=== PATIENT | female | born 1985 | race Caucasian/White ===

== ENCOUNTER 2021-07-08 02:29 | Inpatient (IN) | payer OTHER ==
[2021-07-08] MEDS ORDERED: SODIUM CHLORIDE 0.9% 500 ML 500 ML IV STA (03:14)
[2021-07-08 03:43] LABS: Basophils # (A) 0.1 k/uL (0-0.2); Basophils % (A) 1 %; Eosinophils # (A) 0.2 k/uL (0-0.7); Eosinophils % (A) 3 %; HCT 40.8 % (34.0-46.0); HGB 13.6 gm/dL (11.4-16.0); Lymphocytes # (A) 2.5 k/uL (1.0-4.8); Lymphocytes % (A) 32 %; MCH 31.7 pg (25.0-35.0); MCHC 33.3 g/dL (31.0-37.0); MCV 95.2 fL (80.0-100.0); Mean Platelet Volume 9.6; Monocytes # (A) 0.4 k/uL (0-1.0); Monocytes % (A) 4 %; Neutrophils # (A) 4.7 k/uL (1.3-7.7); Neutrophils % (A) 59 %; Platelet Count 202 k/uL (150-450); RBC 4.28 m/uL (3.80-5.40); RDW 12.6 % (11.5-15.5); WBC 7.9 k/uL (3.8-10.6)
[2021-07-08 04:00] LABS: ALT 16 U/L (4-34); AST 25 U/L (14-36); Acetaminophen <10.0 ug/mL; African American GFR (CKD) >90 (>60 ml/min/1.73 sqM); Albumin 3.8 g/dL (3.5-5.0); Alkaline Phosphatase 68 U/L (38-126); Anion Gap 9 mmol/L; Blood Urea Nitrogen 9 mg/dL (7-17); Calcium 8.6 mg/dL (8.4-10.2); Carbon Dioxide 21 mmol/L (22-30); Chloride 112 mmol/L (98-107); Glucose 70 mg/dL (74-99); Non-African American GFR(CKD) >90 (>60 ml/min/1.73 sqM); Potassium 3.7 mmol/L (3.5-5.1); Salicylate <1.0 mg/dL; Sodium 142 mmol/L (137-145); Total Bilirubin 0.5 mg/dL (0.2-1.3); Total Protein 6.7 g/dL (6.3-8.2)
[2021-07-08 04:16] LABS: Alcohol 149 mg/dL
--- NOTE | 2021-07-08 04:16 | ED ---
Overdose HPI - General Source: patient, EMS Mode of arrival: EMS Limitations: altered mental status - History of Present Illness MD Complaint: accidental overdose -: hour(s) Intent: want to go to sleep <Gonzalez Garza - Last Filed: 07/08/21 04:16> <Fredi Collins - Last Filed: 07/08/21 11:26> - General Chief Complaint: Psychiatric Symptoms Stated Complaint: Overdose Time Seen by Provider: 07/08/21 02:38 - History of Present Illness Initial Comments: This patient is 35-year-old woman who presents with concern that she may have accidentally overdosed. She had taken a number of Klonopin tonight after she had been drinking. She states she was trying to improve the way she was feeling. (Gonzalez Garza) Review of Systems ROS Other: All systems not noted in ROS Statement are negative. Limitations: ROS unobtainable due to patients medical condition <Gonzalez Garza - Last Filed: 07/08/21 04:16> ROS Other: All systems not noted in ROS Statement are negative. <Fredi Collins - Last Filed: 07/08/21 11:26> ROS Statement: Those systems with pertinent positive or pertinent negative responses have been documented in the HPI. Past Medical History Smoking Status: Current every day smoker <Gonzalez Garza - Last Filed: 07/08/21 04:16> General Exam General appearance: appears intoxicated, obtunded Head exam: Present: atraumatic, normocephalic Eye exam: Present: normal appearance, PERRL, nystagmus. Absent: scleral icterus, conjunctival injection Neck exam: Present: normal inspection, full ROM. Absent: tenderness, meningismus Respiratory exam: Present: normal lung sounds bilaterally. Absent: respiratory distress, wheezes, rales, rhonchi, stridor Cardiovascular Exam: Present: regular rate, normal rhythm, normal heart sounds. Absent: systolic murmur, diastolic murmur, rubs, gallop GI/Abdominal exam: Present: soft. Absent: distended, tenderness, guarding, rebound Extremities exam: Present: normal inspection, normal capillary refill. Absent: pedal edema, calf tenderness Back exam: Present: normal inspection. Absent: CVA tenderness (R), CVA tenderness (L) Neurological exam: Present: altered. Absent: motor sensory deficit Psychiatric exam: Absent: homicidal ideation, suicidal ideation Skin exam: Present: warm, dry, intact, normal color. Absent: rash <Gonzalez Garza - Last Filed: 07/08/21 04:16> Course Vital Signs 07/08/21 07/08/21 07/08/21 02:48 06:08 08:07 Temperature 98.6 F Pulse Rate 94 75 84 Respiratory 16 17 18 Rate Blood Pressure 149/96 99/45 O2 Sat by Pulse 94 L 95 94 L Oximetry 07/08/21 10:24 Temperature Pulse Rate 89 Respiratory 18 Rate Blood Pressure 104/66 O2 Sat by Pulse 99 Oximetry Medical Decision Making - Lab Data Result diagrams: 07/08/21 03:25 - EKG Data -: EKG Interpreted by Ms EKG shows normal: sinus rhythm, axis (Normal), intervals (Normal), QRS complexes (Normal), ST-T waves (Normal) Rate: normal (Rate 87 bpm) <Gonzalez Garza - Last Filed: 07/08/21 04:16> - Lab Data Result diagrams: 07/08/21 03:25 07/08/21 03:25 <Fredi Collins - Last Filed: 07/08/21 11:26> - Medical Decision Making I filled out a clinical certification have the patient admitted. (Fredi Collins) - Lab Data Lab Results 07/08/21 07/08/21 07/08/21 Range/Units 03:25 03:25 03:25 WBC 7.9 (3.8-10.6) k/uL RBC 4.28 (3.80-5.40) m/uL Hgb 13.6 (11.4-16.0) gm/dL Hct 40.8 (34.0-46.0) % MCV 95.2 (80.0-100.0) fL MCH 31.7 (25.0-35.0) pg MCHC 33.3 (31.0-37.0) g/dL RDW 12.6 (11.5-15.5) % Plt Count 202 (150-450) k/uL MPV 9.6 Neutrophils % 59 % Lymphocytes % 32 % Monocytes % 4 % Eosinophils % 3 % Basophils % 1 % Neutrophils # 4.7 (1.3-7.7) k/uL Lymphocytes # 2.5 (1.0-4.8) k/uL Monocytes # 0.4 (0-1.0) k/uL Eosinophils # 0.2 (0-0.7) k/uL Basophils # 0.1 (0-0.2) k/uL Sodium (137-145) mmol/L Potassium (3.5-5.1) mmol/L Chloride (98-107) mmol/L Carbon Dioxide (22-30) mmol/L Anion Gap mmol/L BUN (7-17) mg/dL Creatinine (0.52-1.04) mg/dL Est GFR (CKD-EPI)AfAm (>60 ml/min/1.73 sqM) Est GFR (CKD-EPI)NonAf (>60 ml/min/1.73 sqM) Glucose (74-99) mg/dL Calcium (8.4-10.2) mg/dL Total Bilirubin (0.2-1.3) mg/dL AST (14-36) U/L ALT (4-34) U/L Alkaline Phosphatase (38-126) U/L Total Protein (6.3-8.2) g/dL Albumin (3.5-5.0) g/dL Urine HCG, Qual Not Detected (Not Detectd) Salicylates mg/dL Urine Opiates Screen Not Detected (NotDetected) Ur Oxycodone Screen Not Detected (NotDetected) Urine Methadone Screen Not Detected (NotDetected) Ur Propoxyphene Screen Not Detected (NotDetected) Acetaminophen ug/mL Ur Barbiturates Screen Not Detected (NotDetected) U Tricyclic Antidepress Not Detected (NotDetected) Ur Phencyclidine Scrn Not Detected (NotDetected) Ur Amphetamines Screen Detected H (NotDetected) U Methamphetamines Scrn Not Detected (NotDetected) U Benzodiazepines Scrn Not Detected (NotDetected) Urine Cocaine Screen Not Detected (NotDetected) U Marijuana (THC) Screen Detected H (NotDetected) Serum Alcohol mg/dL Coronavirus (PCR) (Not Detectd) 07/08/21 07/08/21 Range/Units 03:25 10:22 WBC (3.8-10.6) k/uL RBC (3.80-5.40) m/uL Hgb (11.4-16.0) gm/dL Hct (34.0-46.0) % MCV (80.0-100.0) fL MCH (25.0-35.0) pg MCHC (31.0-37.0) g/dL RDW (11.5-15.5) % Plt Count (150-450) k/uL MPV Neutrophils % % Lymphocytes % % Monocytes % % Eosinophils % % Basophils % % Neutrophils # (1.3-7.7) k/uL Lymphocytes # (1.0-4.8) k/uL Monocytes # (0-1.0) k/uL Eosinophils # (0-0.7) k/uL Basophils # (0-0.2) k/uL Sodium 142 (137-145) mmol/L Potassium 3.7 (3.5-5.1) mmol/L Chloride 112 H (98-107) mmol/L Carbon Dioxide 21 L (22-30) mmol/L Anion Gap 9 mmol/L BUN 9 (7-17) mg/dL Creatinine 0.61 (0.52-1.04) mg/dL Est GFR (CKD-EPI)AfAm >90 (>60 ml/min/1.73 sqM) Est GFR (CKD-EPI)NonAf >90 (>60 ml/min/1.73 sqM) Glucose 70 L (74-99) mg/dL Calcium 8.6 (8.4-10.2) mg/dL Total Bilirubin 0.5 (0.2-1.3) mg/dL AST 25 (14-36) U/L ALT 16 (4-34) U/L Alkaline Phosphatase 68 (38-126) U/L Total Protein 6.7 (6.3-8.2) g/dL Albumin 3.8 (3.5-5.0) g/dL Urine HCG, Qual (Not Detectd) Salicylates <1.0 mg/dL Urine Opiates Screen (NotDetected) Ur Oxycodone Screen (NotDetected) Urine Methadone Screen (NotDetected) Ur Propoxyphene Screen (NotDetected) Acetaminophen <10.0 ug/mL Ur Barbiturates Screen (NotDetected) U Tricyclic Antidepress (NotDetected) Ur Phencyclidine Scrn (NotDetected) Ur Amphetamines Screen (NotDetected) U Methamphetamines Scrn (NotDetected) U Benzodiazepines Scrn (NotDetected) Urine Cocaine Screen (NotDetected) U Marijuana (THC) Screen (NotDetected) Serum Alcohol 149 mg/dL Coronavirus (PCR) Not Detected (Not Detectd) Disposition <Gonzalez Garza - Last Filed: 07/08/21 04:16> Time of Disposition: 11:26 <Fredi Collins - Last Filed: 07/08/21 11:26> Clinical Impression: Suicidal ideation, Depression, Overdose, Alcohol intoxication Disposition: ADMITTED IP TO THIS HOSP Referrals: None,Stated [Primary Care Provider] - 1-2 days
[2021-07-08 10:53] LABS: Amphetamine Screen,Urine Detected (NotDetected); Barbiturate Screen,Urine Not Detected (NotDetected); Benzodiazepines Screen,Urine Not Detected (NotDetected); Cocaine Screen,Urine Not Detected (NotDetected); Methadone Screen, Urine Not Detected (NotDetected); Opiate Screen,Urine Not Detected (NotDetected); Oxycodone Screen, Urine Not Detected (NotDetected); Phencyclidine Screen,Urine Not Detected (NotDetected); Tricyclic Antidepressant,Urine Not Detected (NotDetected); Urn Cannabinoid Scrn Detected (NotDetected)
[2021-07-08] MEDS ORDERED: MAGNESIUM HYDROXIDE 2,400 MG/10 ML CUP PO PRN (13:23)
[2021-07-08] MEDS ORDERED: ACETAMINOPHEN TAB 325 MG TAB PO PRN (13:23)
[2021-07-08] MEDS ORDERED: MAG HYDROX/AL HYDROX/SIMETH 30 ML CUP PO PRN (13:23)
[2021-07-08] MEDS ORDERED: LORazepam 2 MG/ML INJ IM PRN (13:31)
[2021-07-08] MEDS ORDERED: hydrOXYzine HCL 50 MG/ML 1 ML VIAL IM PRN (13:32)
[2021-07-08] MEDS: LORazepam 1 MG TAB PO PRN (19:01)
--- NOTE | 2021-07-08 20:57 | P.PN ---
Progress Note - Text Progress Note Date: 07/08/21 The patient was combative and psychotic and not appropriate for evaluation.
[2021-07-09] MEDS: NICOTINE 21MG/24HR PATCH TRANSDERM SCH (09:09)
[2021-07-09] MEDS ORDERED: HALOPERIDOL LACTATE 5 MG/ML 1 ML VIAL IM PRN (11:37)
--- NOTE | 2021-07-09 11:39 | P.HP ---
Psychiatric H&P - . H&P Date: 07/09/21 History & Physical: Allergies Allergy/AdvReac Type Severity Reaction Status Date / Time Mayi Allergy Rash/Hives Uncoded 07/08/21 18:56 Vital Signs Temp 97.4 F L 07/09/21 08:40 Pulse 96 07/09/21 08:40 Resp 16 07/09/21 08:40 BP 146/80 07/08/21 19:03 Pulse Ox 96 07/09/21 08:40 Intake & Output 07/08/21 07/09/21 07/09/21 18:59 06:59 18:59 Weight 59.903 kg Laboratory Last Values WBC 7.9 k/uL (3.8-10.6) 07/08/21 03:25 RBC 4.28 m/uL (3.80-5.40) 07/08/21 03:25 Hgb 13.6 gm/dL (11.4-16.0) 07/08/21 03:25 Hct 40.8 % (34.0-46.0) 07/08/21 03:25 MCV 95.2 fL (80.0-100.0) 07/08/21 03:25 MCH 31.7 pg (25.0-35.0) 07/08/21 03:25 MCHC 33.3 g/dL (31.0-37.0) 07/08/21 03:25 RDW 12.6 % (11.5-15.5) 07/08/21 03:25 Plt Count 202 k/uL (150-450) 07/08/21 03:25 MPV 9.6 07/08/21 03:25 Neutrophils % 59 % 07/08/21 03:25 Lymphocytes % 32 % 07/08/21 03:25 Monocytes % 4 % 07/08/21 03:25 Eosinophils % 3 % 07/08/21 03:25 Basophils % 1 % 07/08/21 03:25 Neutrophils # 4.7 k/uL (1.3-7.7) 07/08/21 03:25 Lymphocytes # 2.5 k/uL (1.0-4.8) 07/08/21 03:25 Monocytes # 0.4 k/uL (0-1.0) 07/08/21 03:25 Eosinophils # 0.2 k/uL (0-0.7) 07/08/21 03:25 Basophils # 0.1 k/uL (0-0.2) 07/08/21 03:25 Sodium 142 mmol/L (137-145) 07/08/21 03:25 Potassium 3.7 mmol/L (3.5-5.1) 07/08/21 03:25 Chloride 112 mmol/L (98-107) H 07/08/21 03:25 Carbon Dioxide 21 mmol/L (22-30) L 07/08/21 03:25 Anion Gap 9 mmol/L 07/08/21 03:25 BUN 9 mg/dL (7-17) 07/08/21 03:25 Creatinine 0.61 mg/dL (0.52-1.04) 07/08/21 03:25 Est GFR (CKD-EPI)AfAm >90 (>60 ml/min/1.73 sqM) 07/08/21 03:25 Est GFR (CKD-EPI)NonAf >90 (>60 ml/min/1.73 sqM) 07/08/21 03:25 Glucose 70 mg/dL (74-99) L 07/08/21 03:25 Calcium 8.6 mg/dL (8.4-10.2) 07/08/21 03:25 Total Bilirubin 0.5 mg/dL (0.2-1.3) 07/08/21 03:25 AST 25 U/L (14-36) 07/08/21 03:25 ALT 16 U/L (4-34) 07/08/21 03:25 Alkaline Phosphatase 68 U/L (38-126) 07/08/21 03:25 Total Protein 6.7 g/dL (6.3-8.2) 07/08/21 03:25 Albumin 3.8 g/dL (3.5-5.0) 07/08/21 03:25 TSH 0.787 mIU/L (0.465-4.680) 07/09/21 06:51 Urine HCG, Qual Not Detected (Not Detectd) 07/08/21 03:25 Salicylates <1.0 mg/dL 07/08/21 03:25 Urine Opiates Screen Not Detected (NotDetected) 07/08/21 03:25 Ur Oxycodone Screen Not Detected (NotDetected) 07/08/21 03:25 Urine Methadone Screen Not Detected (NotDetected) 07/08/21 03:25 Ur Propoxyphene Screen Not Detected (NotDetected) 07/08/21 03:25 Acetaminophen <10.0 ug/mL 07/08/21 03:25 Ur Barbiturates Screen Not Detected (NotDetected) 07/08/21 03:25 U Tricyclic Antidepress Not Detected (NotDetected) 07/08/21 03:25 Ur Phencyclidine Scrn Not Detected (NotDetected) 07/08/21 03:25 Ur Amphetamines Screen Detected (NotDetected) H 07/08/21 03:25 U Methamphetamines Scrn Not Detected (NotDetected) 07/08/21 03:25 U Benzodiazepines Scrn Not Detected (NotDetected) 07/08/21 03:25 Urine Cocaine Screen Not Detected (NotDetected) 07/08/21 03:25 U Marijuana (THC) Screen Detected (NotDetected) H 07/08/21 03:25 Serum Alcohol 149 mg/dL 07/08/21 03:25 Coronavirus (PCR) Not Detected (Not Detectd) 07/08/21 10:22 07/09/21 11:38 IDENTIFYING DATA: Patient is a single, unemployed, 35-year-old female with a significant history of anxiety and ADD who presented to the hospital via EMS after overdosing on Klonopin and drinking alcohol. HPI: Patient presented to the hospital on 07/08/2021, brought into the hospital via EMS after overdosing on 10 tablets of 0.5 mg Klonopin while drinking alcohol. Upon evaluation the EPS, the patient admitted to ongoing depressive symptoms, severe anxiety, and insomnia issues. She reported numerous stressors including struggling with managing her. Children's behavioral issues. She reported to the PES nurse that in 2018, she had a nervous breakdown where she experienced severe anxiety, depression, and thoughts to children. He upon evaluation by this provider, the patient expresses a strong desire for discharge. She expresses that she does not want to sign any paperwork or the voluntary form, she will be discharged today. She was informed that this is likely not going to happen. She was however agreeable to the interview. The patient reports that she feels that this hospitalization is completely out of proportion to what she has been experiencing. She reports that she has constantly had suicidal thoughts ever since she was in the ninth grade. She reports that this is the first time she has ever acted on these thoughts. She states that she does not believe she had any intention to try and kill herself as she was just trying to calm down. She reports that she was thinking about her father who moved to [place] and 2015. She reports that her relationship with her father has been deteriorating since due to lack of communication. She reports that she was very close to her father and felt betrayed when he moved down to [place] to be with a woman whom she does not like. She reports that she had a mental breakdown in 2018 after visiting her father. She is quite tearful during this history. In regards to depressive symptoms, the patient reports that she has had difficulty with sleep however this is managed with trazodone which she is currently not taking as she is not working. She reports no prior attempts at suicide. She denies any current suicidal or homicidal ideation, intention, and/or plan. However, the patient does admit that she was having intrusive thoughts of driving her vehicle in front of a semitruck with her children in the backseat. She vehemently reports that she will never do such a thing. The patient denies any significant history of nathan or hypomania. She reports no periods of excessive energy, mood lability, grandiosity, or increased goal- directed behavior. In regards to trauma history, the patient is not reporting any significant history of physical, sexual, or emotional abuse. She reports that she just feels betrayed by her father moving away and that this causes her significant distress and makes her quite tearful. She reports that she is cutting him off as she feels that he does not appreciate her. In regards to substance use, the patient reports that she smokes half a pack of tobacco per day. She reports that she has been drinking 3 out of 7 days per week. She reports that she would average approximately a pint of liquor per week. She reports that she smokes marijuana more than she does cigarettes. She uses marijuana daily. She denies any other drug use. PAST PSYCHIATRIC HISTORY: Patient states that she is currently open with [facility] in [place] with Jennifer Prather. She reports that she has been diagnosed with ADD and anxiety and has been well managed with Vyvanse and Klonopin. She has reportedly been on Prozac, BuSpar, and trazodone however has stopped taking these medications that she felt that there was no point. Patient reports no previous psychiatric hospitalizati ons. Patient denies any history of suicide attempts in the past. PMH: Patient reports no significant past medical history. Smoking Status: Current every day smoker ALLERGIES: NO KNOWN DRUG ALLERGIES CHEMICAL DEPENDENCY HISTORY: as per HPI FAMILY PSYCHIATRIC/SUBSTANCE USE HISTORY: She reports that her father has had issues with alcohol. She otherwise does not report any family psychiatric or substance abuse history. SOCIAL HISTORY: Patient was born and raised in [place], [place]. She is currently single however is living with her boyfriend Ahmet whom she has been with for the past 7 months. Also present in the home are her 5-year-old and 11-year-old. Ahmet' 8-year-old son is also present in the home. 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 She reports that she stopped working due to her carpal tunnel. She reports her anabaptist affiliation. She denies any legal issues or history. She reports no service. MENTAL STATUS EXAM: General Appearance: Patient appears to be stated age is alert, directable, and attempts to cooperate. Patient appears to have slightly poor hygiene and grooming. She appears disheveled. Behavior: Patient is seated without any agitated behavior. Eye contact is intermittent. Patient is tearful during the interview. Speech: Patient's speech is fluent and nonpressured. Mood/Affect: Patient reports their mood is "annoyed ." Affect is irritable, tearful. Suicidality/Homicidality: Patient is currently denying any suicidal or homicidal ideation. Perceptions: Patient denies any visual hallucinations and denies any auditory hallucinations Though content/process: There is no evidence of any delusional thought content. Patient is fixated on discharge. Memory and concentration: AOX3, grossly intact for the purposes of this session. Can spell "WORLD" backwards Judgment and insight: Poor STRENGTHS/WEAKNESSES: Strength is that the patient appears to be in relatively good health. Weakness is that the patient has limited insight and judgment regards to her mental illness as well as polysubstance use. INTELLECT: average IMPRESSIONS: Depressive disorder, unspecified; rule out major depressive disorder Cannabis use disorder Nicotine dependence Alcohol use disorder PLAN: -Patient is admitted under involuntary status to MHU for stabilization of psychiatric symptoms and safety. A second certification was completed and along with petition will be filed for court. -Medications : We will start the patient on Lexapro 5 mg by mouth daily for management of depression/anxiety. Patient however stating that she does not want to take any medications aside from Klonopin and her Vyvanse. Despite attempts at psychoeducation regarding psychotropic medications, the patient refuses to participate at this time. Furthermore, this provider offered to speak with her outpatient psychiatrist to coordinate care however, the patient does not wish t his provider to speak with her outpatient psychiatrist at this time. - Vistaril and Haldol PRN for agitation/aggression -CIWA protocol with Ativan PRN for ETOH withdrawal -Patient was counseled on substance abuse however appears to be contemplative at this time. -Patient was informed of the risks, benefits and side effects of the medication however is refusing at this time. -Internal Medicine consult to perform medical evaluation and physical. -NRT - nicotine patch -SW on board for discharge planning. Encourage patient to participate in groups to work on coping skills. 07/09/21 11:39
[2021-07-09 11:54] LABS: Chol/HDL Ratio 2.75 Ratio; LDL Cholesterol,Calculated 69.2 mg/dL (0.0-131.0); VLDL Calculation 18.02 mg/dL (5.00-40.00)
--- NOTE | 2021-07-10 00:26 | P.CONS ---
History of Present Illness - Reason for Consult Consult date: 07/10/21 - History of Present Illness Patient is a 35-year-old female with a PMH of tobacco abuse, anxiety, and ADHD quit presented to the emergency room after an intentional overdose. Patient was admitted to the mental health unit where she was seen and evaluated. The patient reports that she took 10 tablets of her Klonopin due to her worsening depression. She reported somewhat the same since admission. She denied any physical complaints however. She reports smoking half a pack of cigarettes daily and using recreational marijuana but denied any additional substance use. She denied chest discomfort, shortness of breath, fever, chills, cough, nausea, vomiting, abdominal, diarrhea. Review of systems: Pertinent positives and negatives as discussed in HPI, a complete review of systems was performed and all other systems are negative. Physical examination: General: non toxic, no distress, appears at stated age, normal weight Derm: no unusual rashes/lesions no unusual ecchymoses, warm, dry Head: atraumatic, normocephalic, symmetric Eyes: EOMI, no lid lag, anicteric sclera, pupils equal round reactive to light ENT: Nose and ears atraumatic, no thrush, no pharyngeal erythema Neck: No thyromegaly, no cervical lymphadenopathy, trachea midline, supple Mouth: no lip lesion, mucus membranes moist Cardiovascular: S1S2 reg, no murmur, positive posterior tibial pulse bilateral, no edema, capillary refill less than 2 seconds Lungs: CTA bilateral, no rhonchi, no rales , no accessory muscle use Abdominal: soft, nontender to palpation, no guarding, no appreciable organomegaly, normal bowel sounds Ext: no gross muscle atrophy, muscle strength 5 out of 5 in all 4 extremities grossly, no contractures, Neuro: CN II-XI grossly intact, light touch intact all 4 extremities, finger to nose within normal limits, Psych: Alert, oriented, appropriate affect Assessment/plan Marijuana and tobacco abuse -Advised on importance of cessation Depression and suicidal ideation -As per psychiatry Thank you for allowing us to participate in the care of this patient. We will follow peripherally. Do not hesitate to contact us with questions. Someone can be reached from the [facility] hospitalist group at all hours of the day at [phone]. Past Medical History Smoking Status: Unknown if ever smoked Medications and Allergies Home Medications Medication Instructions Recorded Confirmed Type Ibuprofen [Motrin] 600 mg PO Q8HR PRN 07/08/21 07/08/21 History Lisdexamfetamine Dimesylate 60 mg PO QAM 07/08/21 07/08/21 History [Vyvanse] busPIRone HCL 10 mg PO BID 07/08/21 07/08/21 History clonazePAM [KlonoPIN] 0.5 mg PO BID PRN 07/08/21 07/08/21 History Allergies Allergy/AdvReac Type Severity Reaction Status Date / Time Mayi Allergy Rash/Hives Uncoded 07/08/21 18:56 Physical Exam Vitals: Vital Signs Temp Pulse Pulse Resp Pulse Ox 07/09/21 08:40 97.4 F L 96 69 16 96 Results CBC & Chem 7: 07/08/21 03:25 07/08/21 03:25
[2021-07-10] MEDS: ESCITALOPRAM 5 MG TAB PO SCH (09:14)
[2021-07-10] MEDS: NICOTINE 21MG/24HR PATCH TRANSDERM SCH (09:15)
[2021-07-10] MEDS: hydrOXYzine pamoate 25 MG CAP PO PRN (09:16)
--- NOTE | 2021-07-10 11:57 | P.PN ---
Progress Note - Text Progress Note Date: 07/10/21 Interval History: Patient was seen resting in bed and was directable and agreeable to speak with policy writer typist in the office. And patient states that she will "do whatever I need to do in order to get out of here." However, when the discussion of medications came up with the patient, the patient is not wishing to start any antidepressant at this time. She continues to be guarded about her history and minimizes the reasons for her hospitalization. She is currently not endorsing any suicidal or homicidal ideation, intention, and/or plan. She is not reporting any auditory or visual hallucinations. She becomes tearful during the interview stating that she wishes to leave so that she could be with her children. The patient was agreeable to sign a release of information for her outpatient providers for mental health for primary care. The patient states that she is not depressed and that she is primarily dealing with ADHD. This provider attempted to educate the patient on her clinical presentation and wide depression and anxiety are the primary diagnoses and not ADHD however the patient is not willing to accept this information at this time. The patient admits primarily isolative to herself in her room. She expresses her anxiety is very bad and that is why she does not want to get out of her room to go attend meals. She is requesting that staff bringing her meals in her room. The patient did have her boyfriend visit last night and was able to go to the lunchroom during visitation hours. Mental Status Exam: General Appearance: Patient appears to be stated age is alert, directable, but uncooperative. Behavior: Patient is calmly seated without any agitated behavior. Patient is tearful throughout the interview. Speech: Patient's speech is fluent and nonpressured. Mood/Affect: Mood is "right now I'm depressed being here," affect is congruent, irritable and tearful. Suicidality/Homicidality: Patient denies having any suicidal or homicidal ideation intent or plan. Perceptions: Patient denies any visual hallucinations and denies any auditory hallucinations Though content/process: There is no evidence of any delusional thought content and thought process is linear and goal-directed. Patient is fixated on discharge. Memory and concentration: AOX3, grossly intact for the purposes of this session Judgment and insight: poor Vital Signs Temp 98.1 F 07/10/21 08:00 Pulse 98 07/10/21 08:00 Resp 16 07/10/21 08:00 BP 146/80 07/08/21 19:03 Pulse Ox 98 07/10/21 08:00 Laboratory Results - Last 24 Hours 07/09/21 06:[address] Glu mg/dL 115 Hemoglobin A1c 5.6 Assessment Depressive disorder, unspecified; rule out major depressive disorder Cannabis use disorder Nicotine dependence Alcohol use disorder Plan: -Patient continues to meet criteria for inpatient psychiatric admission for symptom stabilization and safety. Second clinical certificate was filled out and followed for court. -Medications: Patient continues to refuse any medications prescribed by this provider however has been ordered Lexapro. She did agree to sign a release of information for her outpatient mental health nurse practitioner, therapist, and primary care physician. This provider left a HIPAA compliant voicemail in their inbox in order to touch base. -When necessary Vistaril and Haldol for agitation/aggression. -NRT - nicotine patch -SW on board for discharge planning. Encouraged the patient to participate in milieu.
[2021-07-10] MEDS: LORazepam 1 MG TAB PO PRN (22:32)
[2021-07-11] MEDS: NICOTINE 21MG/24HR PATCH TRANSDERM SCH (08:08)
[2021-07-11] MEDS: ESCITALOPRAM 5 MG TAB PO SCH (08:09)
[2021-07-11] MEDS: LORazepam 1 MG TAB PO PRN (08:09)
[2021-07-11] MEDS: hydrOXYzine pamoate 25 MG CAP PO PRN ×3 (10:15→21:56)
--- NOTE | 2021-07-11 13:11 | P.PN ---
Progress Note - Text Progress Note Date: 07/11/21 Interval History: Patient was seen resting in bed and was directable and agreeable to speak with data analyst report writer in the office. The patient deferred mental health court. Patient states that she is going to take medications however states that she will not attend groups because of her elevated anxiety. This provider, the patient, her outpatient psychiatrist, and her outpatient therapist spoke altogether. The patient states that her anxiety and her mood has been well controlled despite her overdose and her inability to attend groups. The patient is pre- contemplative about changing her current lifestyle. This provider tried to discuss with the patient that her medication regimen can contribute to impulsivity and uncontrolled anxiety. We discussed at length the benzodiazepine should be prescribed and limited and short-term cases and that she should not be prescribed them in the long-term. Furthermore, this provider tried to discuss the patient had Vyvanse is for the treatment of ADHD however there should be a focus on the hierarchy of symptoms as the patient primarily presents with anxiety and depression and medications such as Vyvanse may exacerbate anxiety. Again, the patient appears to pre-contemplative and is not willing to concede her beliefs on her treatment with this provider. She is denying any suicidal or homicidal ideation, intention, and/or plan. She is reporting no auditory or visual hallucinations. She denies any paranoia or other delusions. Mental Status Exam: General Appearance: Patient appears to be stated age is alert, directable, but oppositional. Behavior: Patient is calmly seated without any agitated behavior. Patient is tearful throughout the interview. Eye contact is poor. Speech: Patient's speech is fluent and nonpressured. Mood/Affect: Mood is "I should not be here and need to go home." affect is congruent, irritable and tearful. Suicidality/Homicidality: Patient denies having any suicidal or homicidal ideation intent or plan. Perceptions: Patient denies any visual hallucinations and denies any auditory hallucinations Though content/process: There is no evidence of any delusional thought content and thought process is linear and goal-directed. Patient is fixated on discharge. Memory and concentration: AOX3, grossly intact for the purposes of this session Judgment and insight: poor Vital Signs Temp 98.0 F 07/11/21 08:06 Pulse 71 07/11/21 08:06 Resp 16 07/11/21 08:06 BP 113/72 07/11/21 08:06 Pulse Ox 98 07/11/21 08:06 Assessment Depressive disorder, unspecified; rule out major depressive disorder Cannabis use disorder Nicotine dependence Alcohol use disorder Plan: -Patient continues to meet criteria for inpatient psychiatric admission for symptom stabilization and safety. The patient deferred mental health court. -Medications: We will increase Lexapro to 10 mg by mouth daily with plans to titrate to 20 mg by Wednesday. -When necessary Vistaril and Haldol for agitation/aggression. -NRT - nicotine patch -SW on board for discharge planning. Encouraged the patient to participate in milieu.
[2021-07-12] MEDS: hydrOXYzine pamoate 25 MG CAP PO PRN ×3 (08:13→19:39)
[2021-07-12] MEDS ORDERED: ESCITALOPRAM 10 MG TAB PO SCH (09:00)
[2021-07-12] MEDS: traZODone HCL 50 MG TAB PO SCH (21:06)
--- NOTE | 2021-07-13 06:53 | PN ---
PROGRESS NOTE DATE OF SERVICE: 07/12/2021. The patient apparently accidentally took an excessive number of Klonopin tablets after having been drinking. INTERVAL HISTORY: Patient has been doing fair. She had a quiet day yesterday. She comes out on the unit. She did not attend groups yesterday. She does interact some with others. She has not had a problem with the start of Lexapro. She said she slept fair last night. Today she has been up. She chose not to attend groups today. She says she has a hard time in that kind of setting. She notes that she has had long-term problems with depression and that she had been on Prozac for about 2 years, which she stopped in 2019. She said Prozac was helpful for her, though toward the end she developed a lot of GI distress where soon after she would take a tablet of Prozac, she would get epigastric pain. She describes long-term issues of anxiety and depression. We again talked about a major stress factor for her being the disconnection she has had with her father. She described again how her father was a more supportive person for her and when he moved away, it was very hard on her. She says that when the 2 visit [id number], they fall back into the usual relationship they have, but when they are apart, they do not seem to have much for communication. The patient notes that she simply is not able to call her father because she has too much anxiety and that seems to create a lot of distress when she tries to talk on the telephone. In addition, she notes that she has been on Klonopin generally taking half a mg twice a day on a daily basis for at least the last year. Along with that, she has also been smoking marijuana on a daily basis. She says she gets considerable relief from anxiety when she uses both Klonopin and marijuana. She says that when she is heading towards the situations that could be stressful for her such as being in large group settings, she uses 1 or the other or both. She has a lot of relief of her anxiety. She notes that in the past she had been on Xanax, though had considerable side effects with that mainly cognitive issues. She said are less pronounced on Klonopin. She is followed for medications and therapy through [facility] in [place]. Patient was distressed about the idea of being petitioned. She says information that she provided about things that happen several years ago, she believed were "use against me." She described how going a few years back she had fairly persistent suicidal thinking, but that it made it difficult for her to drive a car because she would thought that she might turn into a semi-truck as a suicide attempt. She said that she did believe that she actually would not have done that, though the thoughts seem to haunt her. She said she is has not been having those kind of thoughts currently. She has not had problems with the start of Lexapro. MENTAL STATUS EXAM: Patient was fairly restless. She gave good eye contact. It was noteworthy that early on, she started talking about issues that were very distressing to her. She broke down and cried. There were a few times during the interview that she got very distressed in what she was talking about. On the other hand, she also was able to show some positive responses, especially when she was given some support for her situation. Her affect was intense, her mood depressed. She was significantly distressed. There was no indication of thought disorder. She voiced no thoughts of harm. At the time of the interview, acknowledged that she does have some past issues with significant thoughts of suicide. Cognition was clear. ASSESSMENT/PLAN: I will continue the current diagnosis and treatment plan. We will continue to make efforts to engage the patient in individual and group therapeutic activities. I will continue Lexapro. The dose will be increased to 20 mg tomorrow. I had an extensive discussion regarding treatment issues related to antidepressant and it is noted that I also had an extensive discussion with the patient regarding withdrawal issues she likely is having from Klonopin and marijuana. I discussed that the primary factors impacting her how she is feeling and her mood and so forth most likely driven by withdrawal issues and that withdrawal will be the primary factor that she will be dealing with for the next 4-6 weeks. We discussed that antidepressants may be not have much benefit in the early acute withdrawal. Whether or not she would benefit from some additional medications focus specifically on withdrawal issues remains to be seen. I will start the patient on trazodone 75 mg at bedtime. She has used trazodone in the past. She likely will have significant sleep problems during acute withdrawal. The patient seemed to develop some insight about the importance of moving away from habit- forming substances including benzodiazepines and marijuana. We will focus on stabilization and discharge planning. MMODL / IJN: [id number] /
[2021-07-13] MEDS: ESCITALOPRAM 20 MG TAB PO SCH (08:07)
[2021-07-13] MEDS: hydrOXYzine pamoate 25 MG CAP PO PRN ×2 (08:07→14:42)
[2021-07-13 08:09] VITALS: BP 110/68; PULSE 97; RESP 20; TEMP 98.1
--- NOTE | 2021-07-13 16:05 | P.PN ---
Progress Note - Text Progress Note Date: 07/13/21 CHIEF COMPLAINT The patient apparently accidentally took an excessive number of Klonopin tablets after having been drinking INTERVAL HISTORY Patient has been doing fair. She had a quiet day yesterday. She she was out on the unit a little bit more than she has been. She did not attend groups y esterday. She has been in touch with her fianc on a daily basis though otherwise says that she has trouble making telephone calls to other people. She slept better last night with the addition of Desyrel. Today she spent out. She attended group today. She said she has a little better outlook and overall feels somewhat better today. She continues to have quite a bit of anxiety, restlessness, and mood difficulties. She acknowledges that she may well be struggling with withdrawal issues. She asked whether or not there were any medication options that might help calm her down at least to some extent. She says the Vistaril does not do much for her. She says that she gets into a lot of racing thoughts and can't quiet her brain down. We talked about family issues. It is noted she had an older half-brother who had a very difficult situation and ended up getting into gangs when he was living in [place]. He apparently had come home and visited the family and had a fallout with their father. He went back to [place] and within a short period time was killed in a murder. Was around 1999. She also has a brother who is one year younger and a sister 2 years younger. She says her brother has significant emotional issues and that has been trying to get him into some help though not much has happened as yet. She says she tries to support her mother who bears the brunt of the brothers struggles. She describes an on and off relationship with him. It is noteworthy that when she talked about these issues she got into quite a bit of distress and crying. She tolerates his psychotropic medications. MENTAL STATUS EXAM The patient sat with some restlessness. For the most part she gave good eye contact. She answered questions with direct responses. Her thoughts were clear and coherent. She was spontaneous and interactive. She had periods during the interview where she became quite distressed though other periods where she showed a calm her demeanor and was more reflective. Her mood was dysphoric. There was no indication of thought disorder. She denied thoughts of harm. She was oriented and alert. ASSESSMENT/PLAN I will continue the current diagnosis and treatment plan. I continued to encourage her to engage in group and other therapy activities on the unit. We talked about follow-up plans as far as her getting involved in more regular psychotherapy of what she is in agreement. I noted that the primary factor in regards to her overall condition is likely the acute effects of withdrawal and that it may take time for her to see benefit from an antidepressant as she progresses through acute withdrawal. I will start the patient on Zyprexa 5 mg twice a day. I advised the patient that she should review this further with Dr. Adams. There might be consideration for increasing to [address]. Ortiz may have additional or alternative options to help in getting through early withdrawal. I reviewed issues relating to Zyprexa in regards to potential side effects, metabolic and issues of movement disorder. I advised her that these are not likely to be significant issues in short-term use of Zyprexa. We will focus on stabilization and discharge planning.
[2021-07-13] MEDS: OLANZapine 5 MG TAB PO SCH ×2 (16:32→21:26)
[2021-07-13] MEDS: traZODone HCL 50 MG TAB PO SCH (21:26)
[2021-07-14] MEDS: OLANZapine 5 MG TAB PO SCH (08:46)
[2021-07-14] MEDS: ESCITALOPRAM 20 MG TAB PO SCH (08:46)
[2021-07-14] MEDS: hydrOXYzine pamoate 25 MG CAP PO PRN (08:47)
--- NOTE | 2021-07-14 11:53 | P.DS ---
Providers Date of admission: 07/08/21 13:00 Expected date of discharge: 07/14/21 Attending physician: Arden Myles MD Consults: 07/08/21 13:23 Consult Physician Routine Consulting Provider: Letitia Smith Consult Reason/Comments: Medical Management Do you want consulting provider notified?: Yes Primary care physician: Stated None - Discharge Diagnosis(es) (1) Major depressive disorder Current Visit: Yes Status: Acute Priority: High (2) Cannabis abuse Current Visit: Yes Status: Chronic Priority: Medium (3) Nicotine dependence Current Visit: Yes Status: Chronic Priority: Medium (4) Alcohol use disorder, mild, abuse Current Visit: Yes Status: Chronic Priority: Medium Hospital Course: Admission HPI: Patient is a single, unemployed, 35-year-old female with a significant history of anxiety and ADD who presented to the hospital via EMS after overdosing on Klonopin and drinking alcohol. Patient presented to the hospital on 07/08/2021, brought into the hospital via EMS after overdosing on 10 tablets of 0.5 mg Klonopin while drinking alcohol. Upon evaluation the EPS, the patient admitted to ongoing depressive symptoms, severe anxiety, and insomnia issues. She reported numerous stressors including struggling with managing her. Children's behavioral issues. She reported to the PES nurse that in 2018, she had a nervous breakdown where she experienced severe anxiety, depression, and thoughts to children. He upon evaluation by this provider, the patient expresses a strong desire for discharge. She expresses that she does not want to sign any paperwork or the voluntary form, she will be discharged today. She was informed that this is likely not going to happen. She was however agreeable to the interview. The patient reports that she feels that this hospitalization is completely out of proportion to what she has been experiencing. She reports that she has constantly had suicidal thoughts ever since she was in the ninth grade. She reports that this is the first time she has ever acted on these thoughts. She states that she does not believe she had any intention to try and kill herself as she was just trying to calm down. She reports that she was thinking about her father who moved to [place] and 2014. She reports that her relationship with her father has been deteriorating since due to lack of communication. She reports that she was very close to her father and felt betrayed when he moved down to [place] to be with a woman whom she does not like. She reports that she had a mental breakdown in 2018 after visiting her father. She is quite tearful during this history. In regards to depressive symptoms, the patient reports that she has had difficulty with sleep however this is managed with trazodone which she is currently not taking as she is not working. She reports no prior attempts at suicide. She denies any current suicidal or homicidal ideation, intention, and/or plan. However, the patient does admit that she was having intrusive thoughts of driving her vehicle in front of a semitruck with her children in the backseat. She vehemently reports that she will never do such a thing. The patient denies any significant history of nathan or hypomania. She reports no periods of excessive energy, mood lability, grandiosity, or increased goal- directed behavior. In regards to trauma history, the patient is not reporting any significant history of physical, sexual, or emotional abuse. She reports that she just feels betrayed by her father moving away and that this causes her significant distress and makes her quite tearful. She reports that she is cutting him off as she feels that he does not appreciate her. In regards to substance use, the patient reports that she smokes half a pack of tobacco per day. She reports that she has been drinking 3 out of 7 days per week. She reports that she would average approximately a pint of liquor per week. She reports that she smokes marijuana more than she does cigarettes. She uses marijuana daily. She denies any other drug use. Hospital course: Upon admission to the unit patient was initially uncooperative, tearful, and oppositional. She was not agreeable to any treatment and was requesting discharge. Due to her lack of cooperation and concern for her safety, the patient was continued on her involuntary admission as she refused to sign formal voluntary. Over the course of the hospitalization, attempts were made by this provider to work with the patient and provide her with psychoeducation regarding her diagnoses of depression and anxiety. We've had team meetings and involved both her outpatient therapist and outpatient psychiatrist. The patient was started on Lexapro for management of depression/anxiety. As the hospitalization continued, the patient eventually deferred mental health court. She displayed gradual improvement in regards to her depression and anxiety and began participating in groups and milieu activities including meals. Zyprexa was added to her regimen to augment her antidepressant by the weekend covering provider. On the day of discharge, the patient is not reporting any suicidal or homicidal ideation, intention, and/or plan. She reports she joined orientation and denies any access to firearms or other weapons. She expresses strong desire to live for herself and her family, especially her children. She is currently not reporting any auditory or visual hallucinations. She denies any paranoia or other delusions. The patient has been adherent with her medications and is not endorsing any significant side effects at this time. The patient does have a significant history of alcohol abuse as well as benzodiazepine abuse and was counseled at length on the importance of medication adherence as well as the avoidance of overusing her controlled substance medications. The patient acknowledges understanding of the dangers of this. The patient was counseled on her medications and need for regular compliance and was encouraged to follow-up with her outpatient appointments for mental health for primary care. Prior to discharge, family meeting will be arranged by social worker clinical to answer any questions and ensure safety. Mental status exam: General Appearance: Patient appears to be stated age is alert, pleasant, and cooperative. Patient is in no acute distress and has fair hygiene and grooming Behavior: Patient is calmly seated without any agitated behavior. Speech: Patient's speech is fluent and nonpressured. Mood/Affect: Patient reports their mood is "feeling better", affect is congruent and euthymic and appropriately tearful. Suicidality/Homicidality: Patient denies having any suicidal or homicidal ideation intent or plan. Perceptions: Patient denies any auditory or visual hallucinations. Though content/process: There is no evidence of any delusional thought content and thought process is linear and goal-directed. She is future oriented. Memory and concentration: AOX3, grossly intact for the purposes of this session. Can spell "WORLD" backwards correctly. Judgment and insight: Improved with guarded prognosis Vital Signs Temp 98.1 F 07/13/21 08:05 Pulse 97 07/13/21 08:05 Resp 20 07/13/21 08:05 BP 110/68 07/13/21 08:05 Pulse Ox 98 07/12/21 08:13 Intake & Output 07/13/21 07/14/21 07/14/21 18:59 06:59 18:59 Weight 60.6 kg Impression: Major depressive disorder Cannabis use disorder Nicotine dependence Alcohol use disorder Plan: -Continue with discharge today as patient has improved and stabilized psychiatrically and is not currently an imminent threat to herself and/or others. Patient will remain at chronically elevated risk for harm to self and/or others due to her lack of coping skills and her prior attempt at suicide. -Continue medications: Lexapro 20 mg by mouth daily for depression/anxiety Zyprexa 5 mg by mouth twice a day for augmentation of antidepressant Trazodone 75 mg daily at bedtime for insomnia -Patient was counseled on the need for medication compliance and appropriate follow-up at mental health and also primary care for medical issues. Patient verbalized understanding and agreed. -Social work to arrange for and conduct family meeting to ensure safety upon discharge and answer any questions/concerns. Social work also to arrange for patients follow up appointments with [facility] and with [facility] for psychiatric care along with follow up with primary care provider. -Patient counseled on abstaining from recreational drugs and marijuana and alcohol. Was informed/educated on the adverse effects on their physical and mental health. Patient verbally agreed and understood. Patient was offered substance abuse treatment however declined at this time. -Patient was instructed to return to the hospital or seek immediate medical care if their psychiatric or medical symptoms do worsen or reoccur. -Psychoeducation and supportive therapy provided to patient. Risks and benefits of pharmacological treatment versus the risks and benefits of nontreatment weight and discussed. Informed consent discussion held. Common side effects of psychotropics discussed such as, but not limited to headache, GI disturbance, sexual dysfunction, movement disorders, sedation, and orthostatic hypotension. Life threatening and blackbox warnings of prescribed medications also discussed. Potential risks of operating a vehicle or heavy machinery discussed with patient at length. Advised on importance of compliance and a reliable and res ponsible manner. Patient advised to review FDA consumer labeling of all medications prior to taking. Patient verbalized understanding of potential risks, and agrees with current treatment plan. Patient advised to medically contact physician/emergency personnel if any acute changes in condition occur. Laboratory Results WBC 7.9 k/uL (3.8-10.6) 07/08/21 03:25 RBC 4.28 m/uL (3.80-5.40) 07/08/21 03:25 Hgb 13.6 gm/dL (11.4-16.0) 07/08/21 03:25 Hct 40.8 % (34.0-46.0) 07/08/21 03:25 MCV 95.2 fL (80.0-100.0) 07/08/21 03:25 MCH 31.7 pg (25.0-35.0) 07/08/21 03:25 MCHC 33.3 g/dL (31.0-37.0) 07/08/21 03:25 RDW 12.6 % (11.5-15.5) 07/08/21 03:25 Plt Count 202 k/uL (150-450) 07/08/21 03:25 MPV 9.6 07/08/21 03:25 Neutrophils % 59 % 07/08/21 03:25 Lymphocytes % 32 % 07/08/21 03:25 Monocytes % 4 % 07/08/21 03:25 Eosinophils % 3 % 07/08/21 03:25 Basophils % 1 % 07/08/21 03:25 Neutrophils # 4.7 k/uL (1.3-7.7) 07/08/21 03:25 Lymphocytes # 2.5 k/uL (1.0-4.8) 07/08/21 03:25 Monocytes # 0.4 k/uL (0-1.0) 07/08/21 03:25 Eosinophils # 0.2 k/uL (0-0.7) 07/08/21 03:25 Basophils # 0.1 k/uL (0-0.2) 07/08/21 03:25 Sodium 142 mmol/L (137-145) 07/08/21 03:25 Potassium 3.7 mmol/L (3.5-5.1) 07/08/21 03:25 Chloride 112 mmol/L (98-107) H 07/08/21 03:25 Carbon Dioxide 21 mmol/L (22-30) L 07/08/21 03:25 Anion Gap 9 mmol/L 07/08/21 03:25 BUN 9 mg/dL (7-17) 07/08/21 03:25 Creatinine 0.61 mg/dL (0.52-1.04) 07/08/21 03:25 Est GFR (CKD-EPI)AfAm >90 (>60 ml/min/1.73 sqM) 07/08/21 03:25 Est GFR (CKD-EPI)NonAf >90 (>60 ml/min/1.73 sqM) 07/08/21 03:25 Glucose 70 mg/dL (74-99) L 07/08/21 03:[address] Glu mg/dL 115 07/09/21 06:52 Hemoglobin A1c 5.6 % (0.0-6.0) 07/09/21 06:52 Calcium 8.6 mg/dL (8.4-10.2) 07/08/21 03:25 Total Bilirubin 0.5 mg/dL (0.2-1.3) 07/08/21 03:25 AST 25 U/L (14-36) 07/08/21 03:25 ALT 16 U/L (4-34) 07/08/21 03:25 Alkaline Phosphatase 68 U/L (38-126) 07/08/21 03:25 Total Protein 6.7 g/dL (6.3-8.2) 07/08/21 03:25 Albumin 3.8 g/dL (3.5-5.0) 07/08/21 03:25 Triglycerides 90.10 mg/dL (0.00-149.00) 07/09/21 06:51 Cholesterol 137.00 mg/dL (0.00-200.00) 07/09/21 06:51 LDL Cholesterol, Calc 69.2 mg/dL (0.0-131.0) 07/09/21 06:51 VLDL Cholesterol, Calc 18.02 mg/dL (5.00-40.00) 07/09/21 06:51 HDL Cholesterol 49.80 mg/dL (40.00-60.00) 07/09/21 06:51 Cholesterol/HDL Ratio 2.75 Ratio 07/09/21 06:51 TSH 0.787 mIU/L (0.465-4.680) 07/09/21 06:51 Urine HCG, Qual Not Detected (Not Detectd) 07/08/21 03:25 Salicylates <1.0 mg/dL 07/08/21 03:25 Urine Opiates Screen Not Detected (NotDetected) 07/08/21 03:25 Ur Oxycodone Screen Not Detected (NotDetected) 07/08/21 03:25 Urine Methadone Screen Not Detected (NotDetected) 07/08/21 03:25 Ur Propoxyphene Screen Not Detected (NotDetected) 07/08/21 03:25 Acetaminophen <10.0 ug/mL 07/08/21 03:25 Ur Barbiturates Screen Not Detected (NotDetected) 07/08/21 03:25 U Tricyclic Antidepress Not Detected (NotDetected) 07/08/21 03:25 Ur Phencyclidine Scrn Not Detected (NotDetected) 07/08/21 03:25 Ur Amphetamines Screen Detected (NotDetected) H 07/08/21 03:25 U Methamphetamines Scrn Not Detected (NotDetected) 07/08/21 03:25 U Benzodiazepines Scrn Not Detected (NotDetected) 07/08/21 03:25 Urine Cocaine Screen Not Detected (NotDetected) 07/08/21 03:25 U Marijuana (THC) Screen Detected (NotDetected) H 07/08/21 03:25 Serum Alcohol 149 mg/dL 07/08/21 03:25 Coronavirus (PCR) Not Detected (Not Detectd) 07/08/21 10:22 Allergies Allergy/AdvReac Type Severity Reaction Status Date / Time Mayi Allergy Rash/Hives Uncoded 07/08/21 18:56 Patient Condition at Discharge: Stable Plan - Discharge Summary Discharge Rx Participant: No New Discharge Prescriptions: New Escitalopram [Lexapro] 20 mg PO DAILY 30 Days tab OLANZapine [ZyPREXA] 5 mg PO BID 30 Days tab traZODone HCL [Desyrel] 75 mg PO HS 30 Days tab Continue Ibuprofen [Motrin] 600 mg PO Q8HR PRN PRN Reason: Pain Lisdexamfetamine Dimesylate [Vyvanse] 60 mg PO QAM Discontinued busPIRone HCL 10 mg PO BID clonazePAM [KlonoPIN] 0.5 mg PO BID PRN PRN Reason: Anxiety Discharge Medication List Ibuprofen [Motrin] 600 mg PO Q8HR PRN 07/08/21 [History] Lisdexamfetamine Dimesylate [Vyvanse] 60 mg PO QAM 07/08/21 [History] Escitalopram [Lexapro] 20 mg PO DAILY 30 Days tab 07/14/21 [Rx] OLANZapine [ZyPREXA] 5 mg PO BID 30 Days tab 07/14/21 [Rx] traZODone HCL [Desyrel] 75 mg PO HS 30 Days tab 07/14/21 [Rx] Follow up Appointment(s)/Referral(s): [facility] [NON-STAFF] - 1 Week Activity/Diet/Wound Care/Special Instructions: Activity and diet as tolerated. Avoid the use of street drugs and alcohol. Take all medications as prescribed. When you are in need of refills on your medications please contact your medical provider and/or outpatient psychiatrist to have this done. Please go to scheduled outpatient appointment for aftercare treatment. If symptoms return or become worse, call the crisis line at and/or go to the nearest emergency room for evaluation Discharge Disposition: HOME SELF-CARE
== END 2021-07-14 13:39 | disposition home or self-care (01) | DRG 918 ==
LOC: EC 02:29 → 3MHU 13:00
PROVIDERS: ADMIT Psychiatry & Neurology Psychiatry; ATTEND Psychiatry & Neurology Psychiatry
DX: T42.4X2A Poisoning by benzodiazepines, intentional self-harm, initial encounter (principal); R45.851 Suicidal ideations; Z20.822 Contact with and (suspected) exposure to COVID-19; F10.129 Alcohol abuse with intoxication, unspecified; F12.10 Cannabis abuse, uncomplicated; F17.210 Nicotine dependence, cigarettes, uncomplicated; F32.9 Major depressive disorder, single episode, unspecified; F41.9 Anxiety disorder, unspecified; F90.9 Attention-deficit hyperactivity disorder, unspecified type; G47.00 Insomnia, unspecified; Z79.899 Other long term (current) drug therapy; Z71.51 Drug abuse counseling and surveillance of drug abuser; Z71.41 Alcohol abuse counseling and surveillance of alcoholic
CPT/HCPCS: 36415; 80053; 80061; 80143; 80179; 80306; 80320; 81025; 82075; 83036; 84443; 85025; 87635; 93005; 96360; 99285

== ENCOUNTER 2022-03-24 10:16 | Emergency (ER) | payer MEDICAID, OTHER ==
[2022-03-24 10:40] VITALS: TEMP 97.8
[2022-03-24] MEDS ORDERED: SODIUM CHLORIDE 0.9% 1,000 ML IV STA (11:01)
[2022-03-24] MEDS ORDERED: KETOROLAC 15 MG/ML 1 ML VIAL IVP STA (11:01)
[2022-03-24 11:16] LABS: Basophils % (A) 1 %; Eosinophils # (A) 0.2 k/uL (0-0.7); Eosinophils % (A) 3 %; HCT 43.5 % (34.0-46.0); HGB 14.7 gm/dL (11.4-16.0); Lymphocytes # (A) 1.7 k/uL (1.0-4.8); Lymphocytes % (A) 22 %; MCH 31.8 pg (25.0-35.0); MCHC 33.7 g/dL (31.0-37.0); MCV 94.3 fL (80.0-100.0); Mean Platelet Volume 10.6; Monocytes # (A) 0.4 k/uL (0-1.0); Monocytes % (A) 6 %; Neutrophils # (A) 5.1 k/uL (1.3-7.7); Neutrophils % (A) 67 %; Platelet Count 221 k/uL (150-450); RBC 4.61 m/uL (3.80-5.40); RDW 12.5 % (11.5-15.5); WBC 7.6 k/uL (3.8-10.6)
[2022-03-24 11:29] LABS: ALT 172 U/L (4-34); AST 127 U/L (14-36); African American GFR (CKD) >90 (>60 ml/min/1.73 sqM); Alkaline Phosphatase 102 U/L (38-126); Anion Gap 8 mmol/L; Blood Urea Nitrogen 13 mg/dL (7-17); Carbon Dioxide 27 mmol/L (22-30); Chloride 104 mmol/L (98-107); Glucose 91 mg/dL (74-99); Lipase 42 U/L (23-300); Non-African American GFR(CKD) >90 (>60 ml/min/1.73 sqM); Potassium 4.1 mmol/L (3.5-5.1); Sodium 139 mmol/L (137-145); Total Bilirubin 0.5 mg/dL (0.2-1.3); Total Protein 6.7 g/dL (6.3-8.2)
--- NOTE | 2022-03-24 12:01 | CT ---
EXAMINATION TYPE: CT abdomen pelvis w con DATE OF EXAM: 03/24/2022 COMPARISON: HISTORY: umbilical pain, lower abdominal pain CT DLP: 720 mGycm Automated exposure control for dose reduction was used. TECHNIQUE: Helical acquisition of images from the lung bases through the pelvis have been completed. CONTRAST: Performed without Oral Contrast and with IV Contrast, patient injected with 100 mL of Isovue 300. FINDINGS: Umbilical hernia contains fat. LUNG BASES: No significant abnormality is appreciated. AORTA: No significant abnormality is appreciated. LIVER/GB: Periportal halo changes are present on early imaging but not seen on delayed images, questi onable clinical significance. The liver is enlarged, gallbladder within normal limits. PANCREAS: No significant abnormality is seen. SPLEEN: No significant abnormality is seen. ADRENALS: No significant abnormality is seen. KIDNEYS: No significant abnormality is seen. REPRODUCTIVE ORGANS: No significant abnormality is seen BOWEL: No significant abnormality is seen. The appendix is normal. FREE AIR: No Free Air visible. ASCITES: Fluid within the pelvis is high attenuation and likely represents hemorrhage, possible siza ble ovarian cyst on the left measuring 3.4 cm. PELVIC ADENOPATHY: None visualized. RETROPERITONEAL ADENOPATHY: No Retroperitoneal Adenopathy visible. URINARY BLADDER: No significant abnormality is seen. OSSEOUS STRUCTURES: No significant abnormality is seen. IMPRESSION: CONSIDER RUPTURED OVARIAN CYST. THERE IS HEPATOMEGALY, ADDITIONAL FINDINGS ABOVE.
[2022-03-24 12:04] LABS: Appearance,Urine Clear (Clear); Bilirubin,Urine Negative (Negative); Blood,Urine Negative (Negative); Color,Urine Light Yellow; Glucose,Urine (UA) Negative (Negative); Ketones,Urine Negative (Negative); Leukocyte Esterase,Urine Negative (Negative); Nitrite,Urine Negative (Negative); Protein,Urine Negative (Negative); Specific Gravity,Urine 1.016 (1.001-1.035); Urobilinogen,Urine <2.0 mg/dL (<2.0)
--- NOTE | 2022-03-24 12:09 | ED ---
Abdominal Pain HPI - General Chief Complaint: Abdominal Pain Stated Complaint: abd pain Time Seen by Provider: 03/24/22 10:42 Source: patient, RN notes reviewed Mode of arrival: ambulatory Limitations: no limitations - History of Present Illness Initial Comments: 36-year-old female presents emergency Department with chief complaint of abdominal pain. Patient states started Wednesday has progressed. She states is in her midabdomen hours old lower abdomen. Patient states that it's very uncomfortable worse with movement. Patient denies any dysuria hematuria denies any chest. She's had a prior tubal ligation. Patient denies any upper abdominal pain, chest pain back pain flank pain. - Related Data Home Medications Medication Instructions Recorded Confirmed Lisdexamfetamine Dimesylate 60 mg PO QAM 07/08/21 03/24/22 [Vyvanse] Previous Rx's Medication Instructions Recorded Ibuprofen [Motrin] 600 mg PO Q8HR PRN #20 tab 03/24/22 Allergies Allergy/AdvReac Type Severity Reaction Status Date / Time nickel Allergy Rash/Hives Verified 03/24/22 11:50 Review of Systems ROS Statement: Those systems with pertinent positive or pertinent negative responses have been documented in the HPI. ROS Other: All systems not noted in ROS Statement are negative. Past Medical History Past Medical History: No Reported History History of Any Multi-Drug Resistant Organisms: None Reported Past Surgical History: Section, Orthopedic Surgery Additional Past Surgical History / Comment(s): neck surgery 2019 Past Psychological History: Anxiety Smoking Status: Current every day smoker Past Alcohol Use History: Occasional Past Drug Use History: Marijuana General Exam Limitations: no limitations General appearance: alert, in no apparent distress Head exam: Present: atraumatic, normocephalic, normal inspection Eye exam: Present: normal appearance, PERRL, EOMI. Absent: scleral icterus, conjunctival injection, periorbital swelling ENT exam: Present: normal exam, normal oropharynx, mucous membranes moist Neck exam: Present: normal inspection, full ROM. Absent: tenderness, meningismus, lymphadenopathy Respiratory exam: Present: normal lung sounds bilaterally. Absent: respiratory distress, wheezes, rales, rhonchi, stridor Cardiovascular Exam: Present: regular rate, normal rhythm, normal heart sounds. Absent: systolic murmur, diastolic murmur, rubs, gallop, clicks GI/Abdominal exam: Present: soft, tenderness (Lower abdominal), normal bowel sounds. Absent: distended, guarding, rebound, rigid Back exam: Absent: CVA tenderness (R), CVA tenderness (L) Course Vital Signs 03/24/22 03/24/22 10:25 10:40 Temperature 98.2 F 97.8 F Pulse Rate 106 H 76 Respiratory 18 16 Rate Blood Pressure 140/100 147/112 O2 Sat by Pulse 100 100 Oximetry Medical Decision Making - Medical Decision Making Labs reviewed, CT shows fluid in the pelvis consistent with hemorrhagic cyst patient's urinalysis unremarkable patient does have mild transaminitis, enlarged liver on CT. Patient will follow-up PCP return parameters were discussed. - Lab Data Result diagrams: 03/24/22 11:02 03/24/22 11:02 Lab Results 03/24/22 03/24/22 03/24/22 Range/Units 11:02 11:02 11:02 WBC 7.6 (3.8-10.6) k/uL RBC 4.61 (3.80-5.40) m/uL Hgb 14.7 (11.4-16.0) gm/dL Hct 43.5 (34.0-46.0) % MCV 94.3 (80.0-100.0) fL MCH 31.8 (25.0-35.0) pg MCHC 33.7 (31.0-37.0) g/dL RDW 12.5 (11.5-15.5) % Plt Count 221 (150-450) k/uL MPV 10.6 Neutrophils % 67 % Lymphocytes % 22 % Monocytes % 6 % Eosinophils % 3 % Basophils % 1 % Neutrophils # 5.1 (1.3-7.7) k/uL Lymphocytes # 1.7 (1.0-4.8) k/uL Monocytes # 0.4 (0-1.0) k/uL Eosinophils # 0.2 (0-0.7) k/uL Basophils # 0.0 (0-0.2) k/uL Sodium 139 (137-145) mmol/L Potassium 4.1 (3.5-5.1) mmol/L Chloride 104 (98-107) mmol/L Carbon Dioxide 27 (22-30) mmol/L Anion Gap 8 mmol/L BUN 13 (7-17) mg/dL Creatinine 0.64 (0.52-1.04) mg/dL Est GFR (CKD-EPI)AfAm >90 (>60 ml/min/1.73 sqM) Est GFR (CKD-EPI)NonAf >90 (>60 ml/min/1.73 sqM) Glucose 91 (74-99) mg/dL Plasma Lactic Acid Chris 0.6 L (0.7-2.0) mmol/L Calcium 9.0 (8.4-10.2) mg/dL Total Bilirubin 0.5 (0.2-1.3) mg/dL AST 127 H (14-36) U/L ALT 172 H (4-34) U/L Alkaline Phosphatase 102 (38-126) U/L Total Protein 6.7 (6.3-8.2) g/dL Albumin 4.0 (3.5-5.0) g/dL Lipase 42 (23-300) U/L Urine Color Urine Appearance (Clear) Urine pH (5.0-8.0) Ur Specific [place] (1.001-1.035) Urine Protein (Negative) Urine Glucose (UA) (Negative) Urine Ketones (Negative) Urine Blood (Negative) Urine Nitrite (Negative) Urine Bilirubin (Negative) Urine Urobilinogen (<2.0) mg/dL Ur Leukocyte Esterase (Negative) 03/24/22 Range/Units 11:59 WBC (3.8-10.6) k/uL RBC (3.80-5.40) m/uL Hgb (11.4-16.0) gm/dL Hct (34.0-46.0) % MCV (80.0-100.0) fL MCH (25.0-35.0) pg MCHC (31.0-37.0) g/dL RDW (11.5-15.5) % Plt Count (150-450) k/uL MPV Neutrophils % % Lymphocytes % % Monocytes % % Eosinophils % % Basophils % % Neutrophils # (1.3-7.7) k/uL Lymphocytes # (1.0-4.8) k/uL Monocytes # (0-1.0) k/uL Eosinophils # (0-0.7) k/uL Basophils # (0-0.2) k/uL Sodium (137-145) mmol/L Potassium (3.5-5.1) mmol/L Chloride (98-107) mmol/L Carbon Dioxide (22-30) mmol/L Anion Gap mmol/L BUN (7-17) mg/dL Creatinine (0.52-1.04) mg/dL Est GFR (CKD-EPI)AfAm (>60 ml/min/1.73 sqM) Est GFR (CKD-EPI)NonAf (>60 ml/min/1.73 sqM) Glucose (74-99) mg/dL Plasma Lactic Acid Chris (0.7-2.0) mmol/L Calcium (8.4-10.2) mg/dL Total Bilirubin (0.2-1.3) mg/dL AST (14-36) U/L ALT (4-34) U/L Alkaline Phosphatase (38-126) U/L Total Protein (6.3-8.2) g/dL Albumin (3.5-5.0) g/dL Lipase (23-300) U/L Urine Color Light Yellow Urine Appearance Clear (Clear) Urine pH 5.0 (5.0-8.0) Ur Specific [place] 1.016 (1.001-1.035) Urine Protein Negative (Negative) Urine Glucose (UA) Negative (Negative) Urine Ketones Negative (Negative) Urine Blood Negative (Negative) Urine Nitrite Negative (Negative) Urine Bilirubin Negative (Negative) Urine Urobilinogen <2.0 (<2.0) mg/dL Ur Leukocyte Esterase Negative (Negative) Disposition Clinical Impression: Ruptured ovarian cyst, Transaminitis Disposition: HOME SELF-CARE Condition: Stable Instructions (If sedation given, give patient instructions): Ruptured Ovarian Cyst (ED) Additional Instructions: Please return to the Emergency Department if symptoms worsen or any other concerns. Prescriptions: Ibuprofen [Motrin] 600 mg PO Q8HR PRN #20 tab PRN Reason: Pain Is patient prescribed a controlled substance at d/c from ED?: No Referrals: Nonstaff,Physician [Primary Care Provider] - 1-2 days Time of Disposition: 12:09
[2022-03-24] MEDS ORDERED: ONDANSETRON 4 MG/2 ML VIAL IVP STA (12:47)
[2022-03-24] MEDS ORDERED: HYDROmorphone 0.5 MG/0.5 ML SYRINGE IVP STA (12:47)
[2022-03-24] MEDS ORDERED: ACET/COD 300 MG/30 MG STARTER PACK 6 TAB BTL PO STA (12:48)
[2022-03-24 13:04] VITALS: BP 135/85; PULSE 69; RESP 18
== END 2022-03-24 13:13 | disposition home or self-care (01) ==
LOC: EC 10:16
DX: N83.299 Other ovarian cyst, unspecified side (principal); K66.1 Hemoperitoneum; R74.01 Elevation of levels of liver transaminase levels; F41.9 Anxiety disorder, unspecified; F17.200 Nicotine dependence, unspecified, uncomplicated; F12.90 Cannabis use, unspecified, uncomplicated; Z91.048 Other nonmedicinal substance allergy status
CPT/HCPCS: 36415; 80053; 83605; 83690; 85025; 81003; 74177; 99284; 96374; 96375 ×2; 96361; J2405; J1885; J1170; Q9967